=== PATIENT | male | born 1980 | race Caucasian/White ===

== ENCOUNTER 2019-10-01 22:58 | Emergency (ER) | payer OTHER ==
[2019-10-01] MEDS ORDERED: Ondansetron 4 MG Tab.DIS PO ONE (23:06)
[2019-10-01] MEDS ORDERED: Dicyclomine 10 MG Cap PO ONE (23:06)
--- NOTE | 2019-10-01 23:07 | EDM.PDOC ---
ED HPI GENERAL MEDICAL PROBLEM - General Chief Complaint: Abdominal Pain Stated Complaint: nausea, headache Time Seen by Provider: 10/01/19 22:59 Source of Information: Reports: Patient History Limitations: Reports: No Limitations - History of Present Illness INITIAL COMMENTS - FREE TEXT/NARRATIVE: Patient to the emergency department complaining of generalized abdominal pain and cramping with nausea vomiting that started earlier this morning. The patient advises that he was placed on some new medication 1 week ago for 8 in helping him to stop smoking. The patient advises that he did not have any initial symptoms until today. The patient denies any ear, nose, throat symptoms he denies any neck, back pain or stiffness he denies any chest pain or shortness of breath he denies any fever chills Onset: Today Duration: Hour(s): Location: Reports: Abdomen Quality: Reports: Ache Severity: Moderate Improves with: Reports: None Worsens with: Reports: None Associated Symptoms: Reports: Nausea/Vomiting. 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 Denies: Fever, Chills HEENT: Reports: No Symptoms Respiratory: Reports: No Symptoms. Denies: Shortness of Breath Cardiovascular: Reports: No Symptoms GI/Abdominal: Reports: Abdominal Pain, Nausea, Vomiting. Denies: Black Stool, Bloody Stool, Constipation, Diarrhea, Distension, Melena : Reports: No Symptoms Musculoskeletal: Reports: No Symptoms. Denies: Neck Pain, Back Pain Skin: Reports: No Symptoms. Denies: Bruising, Rash, Erythema Neurological: Reports: No Symptoms. Denies: Dizziness, Headache Psychiatric: Reports: No Symptoms ED EXAM, GI/ABD - Physical Exam Exam: See Below Exam Limited By: No Limitations General Appearance: Alert, WD/WN, No Apparent Distress Ears: Normal External Exam Nose: Normal Inspection Throat/Mouth: Normal Inspection, Normal Lips, Normal Voice, No Airway Compromise Head: Atraumatic, Normocephalic Neck: Normal Inspection, Supple, Non-Tender Respiratory/Chest: No Respiratory Distress, Lungs Clear, Normal Breath Sounds Cardiovascular: Normal Peripheral Pulses, Regular Rate, Rhythm, No Murmur GI/Abdominal Exam: Normal Bowel Sounds, Soft, Tender (Epigastric tenderness with palpation) Back Exam: Normal Inspection, Full Range of Motion Extremities: Normal Inspection, Normal Range of Motion, Non-Tender, Normal Capillary Refill Neurological: Alert, Oriented, Normal Cognition, Normal Gait, No Motor/Sensory Deficits Psychiatric: Normal Affect, Normal Mood Skin Exam: Warm, Dry, Intact, Normal Color Course - Vital Signs Text/Narrative:: Patient was evaluated in the emergency department the patient was given Zofran 4 mg ODT as well as Bentyl 20 mg p.o. After these medications the patient did have relief of his symptoms. The patient will be discharged home he will be given Zofran as needed and he will also be advised to increase his fluid bland diet for the next 24 hours and no milk or milk products or spicy or greasy foods until well Last Recorded V/S: Last Vital Signs Temp 36.3 C 10/01/19 23:00 Pulse 57 L 10/01/19 23:00 Resp 16 10/01/19 23:00 BP 144/85 H 10/01/19 23:00 Pulse Ox 100 10/01/19 23:00 - Orders/Labs/Meds Meds: Medications Discontinued Medications Generic Name Dose Route Start Last Admin Trade Name Christopherq PRN Reason Stop Dose Admin Dicyclomine HCl 20 mg 10/01/19 23:06 10/01/19 23:42 Bentyl PO 10/01/19 23:07 20 mg ONETIME ONE Administration Ondansetron HCl 4 mg 10/01/19 23:06 10/01/19 23:42 Zofran Odt PO 10/01/19 23:07 4 mg ONETIME ONE Administration Ondansetron HCl 1 packet 10/02/19 01:03 Take Home: Ondansetron Odt 4 Mg, 2 Tab Pack PO 10/02/19 01:04 ONETIME ONE Departure - Departure Time of Disposition: 01:00 Disposition: Home, Self-Care 01 Condition: Good Clinical Impression: Gastroenteritis, Drug side effects - Discharge Information *PRESCRIPTION DRUG MONITORING PROGRAM REVIEWED*: Not Applicable *COPY OF PRESCRIPTION DRUG MONITORING REPORT IN PATIENT MELITON: Not Applicable Prescriptions: Ondansetron [Zofran ODT] 4 mg PO Q6H PRN 3 Days #15 tab.dis PRN Reason: Nausea/Vomiting Instructions: Viral Gastroenteritis, Adult, [id number] Referrals: Iva Ayala [facility] [Primary Care Provider] - Forms: ED Department Discharge Additional Instructions: increase fluids hold your new medication until ok with your doctor no spicy or greasy foods, bland diet for 24 hours return to ER sooner if worse or problems Sepsis Event Note - Evaluation Sepsis Screening Result: No Definite Risk - Focused Exam Vital Signs: Vital Signs Temp Pulse Resp BP Pulse Ox 10/01/19 23:00 36.3 C 57 L 16 144/85 H 100 Date Exam was Performed: 10/02/19 Time Exam was Performed: 01:06 - Problem List & Annotations (1) Drug side effects SNOMED Code(s): 222373744 Code(s): T88.7XXA - UNSP ADVERSE EFFECT OF DRUG OR MEDICAMENT, INIT ENCNTR Status: Acute Priority: Medium Current Visit: Yes (2) Gastroenteritis SNOMED Code(s): 84274679 Code(s): K52.9 - NONINFECTIVE GASTROENTERITIS AND COLITIS, UNSPECIFIED Status: Acute Priority: Medium Current Visit: Yes - Problem List Review Problem List Initiated/Reviewed/Updated: Yes - Assessment/Plan Plan: as above
[2019-10-02] MEDS ORDERED: Take Home: Ondansetron 4 MG Tab.DIS, 2 Tab Pack PO ONE (01:03)
== END 2019-10-02 01:20 | disposition home or self-care (01) ==
LOC: CC.ED 22:58
DX: K52.1 Toxic gastroenteritis and colitis (principal); T50.905A Adverse effect of unspecified drugs, medicaments and biological substances, initial encounter; Z79.899 Other long term (current) drug therapy
CPT/HCPCS: 99283; A9270-GY